=== PATIENT | female | born 1980 | race Caucasian/White ===

== ENCOUNTER 2017-02-03 12:53 | Emergency (ER) | payer SELFPAY ==
[~2017-02-03] VITALS: Ht 175.3 cm; Wt 81.8 kg
[~2017-02-03 12:53] MED LIST: PREN-39 PO
[2017-02-03 12:55] VITALS: Ht 175.3 cm; Wt 81.8 kg
== END 2017-02-03 18:17 | disposition left against medical advice (07) ==
LOC: E/R 12:53
DX: Z53.21 Procedure and treatment not carried out due to patient leaving prior to being seen by health care provider (principal)